=== PATIENT | male | born 1980 | race Caucasian/White ===

== ENCOUNTER 2021-10-29 23:34 | Emergency (ER) | payer BC ==
[~2021-10-29] VITALS: Ht 172.7 cm; Wt 136.4 kg
[2021-10-29 23:41] VITALS: BP 149/97
[2021-10-29] MEDS ORDERED: HYDR-3965 PO (23:57)
[2021-10-30] MEDS ORDERED: HYDROcodone/acetaminophen 5mg/325mg tablet PO ONE
[2021-10-31] MEDS ORDERED: DULO-31 PO (13:03)
[2021-10-31] MEDS ORDERED: ORPH100T2 PO (13:03)
[2021-10-31] MEDS ORDERED: NAPR-56 PO (13:03)
== END 2021-10-30 00:29 | disposition home or self-care (01) ==
LOC: ER 23:37
DX: M54.50 Low back pain, unspecified (principal); G89.29 Other chronic pain; F17.200 Nicotine dependence, unspecified, uncomplicated
CPT/HCPCS: 99283

== ENCOUNTER 2021-10-31 10:17 | Emergency (ER) | payer BC ==
[~2021-10-31] VITALS: Ht 172.7 cm; Wt 136.4 kg
[~2021-10-31 10:17] MED LIST: HYDR-3965 PO
[2021-10-31 11:09] VITALS: BP 166/101
[2021-10-31] MEDS ORDERED: ketorolac trometh inj. 60 MG/2 ML VIAL IM ONE (12:45)
[2021-10-31] MEDS ORDERED: orphenadrine citrate 60mg/2ml inj. IM ONE (12:45)
[2021-10-31] MEDS ORDERED: DULO-31 PO (13:03)
[2021-10-31] MEDS ORDERED: ORPH100T2 PO (13:03)
[2021-10-31] MEDS ORDERED: NAPR-56 PO (13:03)
== END 2021-10-31 13:53 | disposition home or self-care (01) ==
LOC: ER 10:17
DX: G89.29 Other chronic pain (principal); M48.061 Spinal stenosis, lumbar region without neurogenic claudication; M54.59 Other low back pain; Z79.899 Other long term (current) drug therapy
CPT/HCPCS: 96372; 99284; J1885; J2360